=== PATIENT | male | born 1995 | race Caucasian/White ===

== ENCOUNTER 2020-02-05 07:29 | Outpatient (REF) | payer BC, SELFPAY | END 2020-02-05 07:30 | disposition home or self-care (01) | LOC: HO.LAB 07:29 | PROVIDERS: PCP Internal Medicine; Visit Provider Internal Medicine | DX: Z20.828 Contact with and (suspected) exposure to other viral communicable diseases (principal) | CPT/HCPCS: C9803; U0003 ==

== ENCOUNTER 2023-02-22 15:06 | Outpatient (AMB) | payer OTHER, SELFPAY ==
--- NOTE | 2023-02-22 15:14 | MHC.PC.OV ---
Vital Signs 02/22/23 15:18 Height 5 ft 4.5 in Weight 304 lb 8 oz BMI 51.5 BP 120/72 Blood Pressure Location Lt brachial Position Sitting Pulse 82 Pulse Source Pulse Oximeter Pulse Oximetry (%) 96 Oxygen Delivery Method Room Air Intake Visit Reasons: reestablish care Intake Note: Patient is here today for reestablish care, history of high functioning autism. Complaint of ingrown toe nail of left foot, blood in stool. Groundskeeper Required: No Equipment Technician: Present Accompanied by: Mother Allergies Seasonal Allergies Allergy (Intermediate, Verified 02/22/23 15:23) Itchy Eyes Tobacco use date assessed: 02/22/23 Dental Screening Dental Screen Date: 02/22/23 Did you have a dental visit in the last 12 months?: Yes Did you have a dental problem in the last 6 months where you did not have access to dental care?: No Was dental information given to patient?: Patient has dentist HPI reestablish care HPI Details 27-year-old male presents to the office to reestablish his care. Apparently, he was a regular patient here many years ago. No records available in [facility]. Mom is accompanying the patient on this visit. According to her he has a high functioning autism disorder. He does not communicate much. Current problems include an ingrown toenail and hemorrhoids. Patient currently is on no medications. [facility] Surgical History (Updated 02/22/23 @ 15:24 by SHER Barreto) No pertinent past surgical history Social History (Updated 02/22/23 @ 15:16 by SHER Barreto) Housing: House Alcohol intake: never Patient Tobacco Use Status: Never used Tobacco e-Cigarette/Vaping Use: Never Used Second Hand Smoke Exposure: No service: No Current occupational status: disabled Cognitive needs: No Hearing needs: No Vision needs: Yes (glasses) Questionnaire PHQ-9 Over the last 2 weeks, how often have you been bothered by any of the following problems? 1. Little interest or pleasure in doing things: not at all 2. Feeling down, depressed, or hopeless: not at all 3. Trouble falling or staying asleep, or sleeping too much: not at all 4. Feeling tired or having little energy: not at all 5. Poor appetite or overeating: not at all 6. Feeling bad about yourself - or that you are a failure or have let yourself or your family down: not at all 7. Trouble concentrating on things, such as reading the newspaper or watching television: not at all 8. Moving or speaking so slowly that other people could have noticed. Or the opposite - being so fidgety or restless that you have been moving around a lot more than usual: not at all 9. Thoughts that you would be better off or of hurting yourself in some way: not at all Total score: 0 Depression Screening Interpretation: Negative Depression Screening Done: Yes Source: Developed by Drs. Damian Campbell, Devi Bar, Salomón Larson and colleagues, with an educational loc from [employer]. Thrive Questionnaire Date Thrive assessed: 02/22/23 I am a: Patient What is your living situation today?: I have a steady place to live Within the past 12 months, did the food you bought not last and you didn't have the money to get more?: Never true Within the past 12 months, did you worry whether your food would run out before you got money to buy more?: Never true Do you have trouble paying for medicines?: No Do you have trouble getting transportation to medical appointments?: No Do you have trouble paying your heating and electricity bill?: No Do you have trouble taking care of your child, family member or friend?: No Do you have trouble with day-to-day activities such as bathing, preparing meals, shopping, managing finances, etc.?: No Are you currently unemployed and looking for a job?: No Are you interested in more education?: No Currently or been in a relationship where the following occur: no concerns reported AUDIT C Alcohol Use Questionnaire (AUDIT-C) 1. How often do you have a drink containing alcohol?: Never Total Score: 0 SOWMYA-7 AMB Questionnaire SOWMYA-7 Date SOWMYA - 7 assessed: 02/22/23 Feeling nervous, anxious, or on edge: 1 = Several days (currently in therapy) Not being able to stop or control worryin = Not at all Worrying too much about different things: 0 = Not at all Trouble relaxin = Not at all Being so restless that it is hard to sit still: 0 = Not at all Becoming easily annoyed or irritable: 0 = Not at all Feeling afraid as if something awful might happen: 0 = Not at all Total SOWMYA-7 score (0-4 normal; 5-9 mild; 10-14 moderate; 15-21 severe): 1 Source: Developed by Drs. Damian Campbell, Devi Bar, Salomón Larson and colleagues, with an educational loc from [employer]. Physical exam (Primary Care) Vital Signs: Last Vital Signs Pulse 82 02/22/23 15:18 BP 120/72 02/22/23 15:18 Pulse Ox 96 02/22/23 15:18 Oxygen Delivery Method Room Air 02/22/23 15:18 BMI result Body Mass Index 51.5 Tobacco/Smoking Status: Tobacco use Status Tobacco use date assessed 02/22/23 02/22/23 15:21 Patient Tobacco Use Status Never used Tobacco 02/22/23 15:21 e-Cigarette/Vaping Use Never Used 02/22/23 15:21 PHQ-9: PHQ-9 Score PHQ-9: Total score 0 02/22/23 15:36 Depression Screening Interpretation: Negative Thrive Assessment: Date of Thrive Assessment Date Thrive assessed 02/22/23 02/22/23 15:21 Currently or been in a relationship where the following occur: no concerns reported Const General: cooperative and healthy appearing Nutritional Appearance: well nourished Orientation/consciousness: patient oriented x3 Limitations: no limitations HENMA Head: Yes normal to inspection Eyes General: appearance normal, both eyes and all related structures Neck Neck: Yes normal visual inspection Chest Chest palpation & inspection: normal palpation of entire chest wall Resp Effort & Inspection: normal respiratory effort Skin Other: Face: Erythematous rash on both cheeks. Neuro General: patient oriented x3 Extrem Other: Left foot: Great toe: Swelling and erythema at the medial edge near the nail bed. Tender to touch. Office Procedures Flu Questionnaire Does the patient have a severe egg allergy?: No Does the patient have severe life threatening allergies?: No Does the patient have a fever or illness today?: No Has the patient ever had Guillain-[place] Syndrome?: No Has the patient ever had any past reaction to a flu shot?: No Immunizations flu vacc [id number] 6mos up(PF) 60 mcg(15 mcgx4)/0.5 mL IM syringe Performing Provider: Navdeep Law MD [facility] Administered by: SHER Mcfarland on 02/22/23 15:37 Dose Route Admin Location Dispensed Lot Number Expiration Date NDC Board Filler 0.5 mL IM Left Deltoid 0.5 mL [id number] 08/15/23 28601-156-20 [employer] VIS Given Date VIS Provided VIS Publication Date 02/22/23 Single Vaccine 20 Eligibility Eligibility Date Funding Source Not [facility] Eligible 02/22/23 Private Assessment and Plan Assessment & Plan (1) Paronychia of toe: Code(s): L03.039 - Cellulitis of unspecified toe Plan: Antibiotic called in. Podiatry referral for toenail excision. (2) Rash: Code(s): R21 - Rash and other nonspecific skin eruption Plan: Hydrocortisone cream prescribed.. Orders: Orders Complete Blood Count no Diff Today F84.0 - Autistic disorder Liver Panel Today F84.0 - Autistic disorder Lipid Panel Today F84.0 - Autistic disorder Thyroid Stimulating Hormone Today F84.0 - Autistic disorder UA and rflx microscopic Today F84.0 - Autistic disorder Influenza [id number] Immunization Today Z23 - Encounter for immunization Basic Metabolic Panel Today F84.0 - Autistic disorder Coding Level of Care Code Est Pt Level 3 (76313) Diagnoses Paronychia of toe L03.039 Rash R21
[2023-02-22 15:18] VITALS: BP 120/72; PULSE 82; O2SAT 96; BMI 51.5
== END 2023-02-22 15:59 | disposition home or self-care (01) ==
PROVIDERS: PCP Internal Medicine; Visit Provider Internal Medicine
DX: L03.032 Cellulitis of left toe (principal); R21 Rash and other nonspecific skin eruption; Z23 Encounter for immunization
CPT/HCPCS: 90471; 90686; 99213

== ENCOUNTER 2023-02-22 16:08 | Outpatient (REF) | payer OTHER, SELFPAY ==
[2023-02-22 17:03] LABS: Hematocrit 45.9 % (42.0-52.0); Hemoglobin 15.5 g/dl (14.0-18.0); Mean Corpuscular HGB Conc 33.8 g/dl (31.0-36.0); Mean Corpuscular Hemoglobin 28.6 pg (27.0-33.0); Mean Corpuscular Volume 84.7 fL (80.0-98.0); Mean Platelet Volume 10.1 fL (9.4-12.4); Platelet Count 342 X10*3/uL (160-400); Red Blood Count 5.42 X10*6/uL (4.60-5.80); White Blood Count 9.5 X10*3/uL (4.8-10.8)
[2023-02-22 17:18] LABS: Appearance Urine Clear; Color Urine Dark Yellow; Glucose Urine UA Negative (Negative); Leukocyte Esterase Urine Negative (Negative); Nitrite Urine Negative (Negative); PH 5.5 (5.0-9.0); Specific Gravity - Urine >= 1.030 (1.005-1.025); UMIC TRIGGER UA YES; Urine Blood Negative (Negative); Urine Ketones Negative (Negative); Urine Protein 30 (1+) mg/dL (Neg-Trace)
[2023-02-22 17:49] LABS: Alanine Aminotransferase 31 U/L (0-40); Alkaline Phosphatase 72 U/L (39-117); Anion Gap 12 (12-20); Aspartate Amino Transferase 19 U/L (5-37); Bilirubin Direct 0.1 mg/dL (0.0-0.5); Bilirubin Total 0.3 mg/dL (0.0-1.0); Blood Urea Nitrogen 14 mg/dL (9-16); Calcium 9.4 mg/dL (8.4-10.2); Carbon Dioxide 28 mmol/L (22-29); Chloride 106 mmol/L (96-108); Cholesterol 128 mg/dL (<200); Estimated Glomerular Filt Rate > 60; Glucose Random 84 mg/dL (60-115); HDL Cholesterol 34 mg/dL (>40); LDL Cholesterol Calculated 75 mg/dL (<100); Sodium 142 mmol/L (135-145); Total Protein 8.2 g/dL (6.5-8.0); Triglycerides 98 mg/dL (<150)
[2023-02-22 17:57] LABS: Bacteria Urine None Seen (None Seen); Hyaline Casts Urine 0-2 /LPF (0-2); RBC Urine 0-2 /HPF (0-2)
[2023-02-22 18:05] LABS: Thyroid Stimulating Hormone 0.85 uIU/mL (0.32-4.0)
== END 2023-02-22 16:09 | disposition home or self-care (01) ==
LOC: HO.LAB 16:08
PROVIDERS: PCP Internal Medicine; Visit Provider Internal Medicine
DX: F84.0 Autistic disorder (principal)
CPT/HCPCS: 36415; 80048; 80061; 80076; 81001; 84443; 85027

== ENCOUNTER 2024-01-26 15:55 | Outpatient (AMB) | payer OTHER, SELFPAY ==
--- NOTE | 2024-01-26 16:05 | MHC.PC.OV ---
Vital Signs 01/26/24 16:07 Height 5 ft 4.5 in Weight 317 lb 4 oz BMI 53.6 BP 120/70 Blood Pressure Location Lt brachial Position Sitting Pulse 89 Pulse Source Pulse Oximeter Pulse Oximetry (%) 98 Oxygen Delivery Method Room Air Intake Visit Reasons: overdue follow up Intake Note: Patient is here to follow up on health. Complaint of possible both ear clog and ingrown toe nails on both foot. Health Program Analyst Required: No Concrete Stone Finisher: Present Accompanied by: Mother Allergies Seasonal Allergies Allergy (Intermediate, Verified 01/26/24 16:48) Itchy Eyes Medication List - Last Reconciled 01/26/24 by Joanna Mujica PA-C No Known Home Meds Tobacco use date assessed: 01/26/24 Dental Screening Dental Screen Date: 02/22/23 [facility] Medical History (Updated 01/26/24 @ 16:50 by Joanna Mujica PA-C) Ingrown toenail of both feet Autism Annual physical exam Surgical History No pertinent past surgical history Social History Housing: House Alcohol intake: never Patient Tobacco Use Status: Never used Tobacco e-Cigarette/Vaping Use: Never Used Second Hand Smoke Exposure: No service: No Current occupational status: disabled Cognitive needs: No Hearing needs: No Vision needs: Yes (glasses) Questionnaire Thrive Questionnaire Date Thrive assessed: 02/22/23 SOWMYA-7 AMB Questionnaire SOWMYA-7 Date SOWMYA - 7 assessed: 02/22/23 Source: Developed by Drs. Damian Campbell, Devi Bar, Salomón Larson and colleagues, with an educational loc from [employer]. Physical exam (Primary Care) Vital Signs: Last Vital Signs Pulse 89 01/26/24 16:07 BP 120/70 01/26/24 16:07 Pulse Ox 98 01/26/24 16:07 Oxygen Delivery Method Room Air 01/26/24 16:07 BMI result Body Mass Index 53.6 Tobacco/Smoking Status: Tobacco use Status Tobacco use date assessed 01/26/24 01/26/24 16:10 Patient Tobacco Use Status Never used Tobacco 01/26/24 16:05 e-Cigarette/Vaping Use Never Used 01/26/24 16:05 Thrive Assessment: Date of Thrive Assessment Date Thrive assessed 02/22/23 01/26/24 16:05 Coding Level of Care Code Est Pt Prev Care 18-39y(37799) Diagnoses Annual physical exam Z00.00 Autism F84.0 Impacted cerumen H61.20 Morbid obesity with BMI of 50.0-59.9, adult E66.01; Z68.43 Ingrown toenail of both feet L60.0 Assessment & Plan Assessment & Plan (1) Annual physical exam: Code(s): Z00.00 - Encounter for general adult medical examination without abnormal findings Category: Medical Plan: see below (2) Autism: Code(s): F84.0 - Autistic disorder Category: Medical Plan: see below (3) Impacted cerumen: Code(s): H61.20 - Impacted cerumen, unspecified ear Plan: see below (4) Morbid obesity with BMI of 50.0-59.9, adult: Code(s): E66.01 - Morbid (severe) obesity due to excess calories; Z68.43 - Body mass index [BMI] 50.0-59.9, adult Category: Medical Plan: see below (5) Ingrown toenail of both feet: Code(s): L60.0 - Ingrowing nail Category: Medical Plan: see below Plan Annual Physical Exam: Normal exam. Will order labs to include CBC, CMP, lipid panel, A1c, ESR, CRP, thyroid function to be completed before patient's next appointment in 3-6 months Cerumen Impaction: Ear cleaning procedure to be performed to remove cerumen impaction. Ingrown Toenails: Referral to a air cargo ground crew supervisor for further evaluation and possible removal of ingrown toenails. Consider local anesthesia if necessary for toenail extraction. Orders: Orders C Reactive Protein Today F84.0 - Autistic disorder, H61.20 - Impacted cerumen, unspecified ear, Z00.00 - Encounter for general adult medical examination without abnormal findings Comprehensive Waucoma. Panel Fast Today Z00.00 - Encounter for general adult medical examination without abnormal findings Erythrocyte Sedimentation Rate Today F84.0 - Autistic disorder, Z00.00 - Encounter for general adult medical examination without abnormal findings Hemoglobin A1c Today E11.9 - Type 2 diabetes mellitus without complications Liver Panel Today F84.0 - Autistic disorder, Z00.00 - Encounter for general adult medical examination without abnormal findings Vitamin D 25-OH Total Today R79.89 - Other specified abnormal findings of blood chemistry Vitamin B12 and Folate Today R79.89 - Other specified abnormal findings of blood chemistry Complete Blood Count Auto Diff Today Z00.00 - Encounter for general adult medical examination without abnormal findings Lipid Panel Today Z00.00 - Encounter for general adult medical examination without abnormal findings TSH reflex Free T4 Today Z00.00 - Encounter for general adult medical examination without abnormal findings Referrals Podiatry Referral L60.0 - Ingrowing nail Scribe Plan - Not visible on output: History of Present Illness The patient is a 28-year-old male with a PMHx of Autism presenting for his annual physical exam. In addition patient is presenting with concerns of bilateral blocked ears and ingrown toenails to bilateral great toes. His ears have felt blocked for the past few weeks, and his mother reports having tried using hydrogen peroxide to alleviate possible cerumen impaction, without success. He experiences blockage in both ears. Additionally, the patient has been experiencing issues with ingrown toenails on both great toes. He reports pain and discomfort, particularly localized to specific areas of each toe. No professional treatment has been sought for his toenail issue to date, and he is not under the care of a air cargo ground crew supervisor. The patient denies any systemic symptoms such as fever or signs of infection related to the toenails. The patient has not had blood work done recently, with the last tests performed approximately one ago in February and were within normal limits. He is not on any medications and has had no recent eye exams but has a dentist check-up once a year. Social History - Education: Currently attending [employer] for Human Resources Operations Manager's permit - Employment: Not currently employed; recently left previous work. - Therapy: Attends weekly therapy sessions at [facility]. - Family: Lives with family, including a supportive mother. Review of Systems Ears: - Reports feeling of blockage in both ears. Skin/Nails: - Reports pain and discomfort from ingrown toenails on both great toes. Physical Exam Appearance: Alert. Oriented X3. No acute distress. Head: Normal external exam. Normocephalic. Atraumatic. No Conroy signs noted. No raccoon eyes noted. Eyes: Pupils are equal, round, and reactive to light. Extraocular movements intact. Conjunctiva and sclera normal. Eyelids normal. Ears: External auditory canal blocked with ear wax, especially in the right ear. Tympanic membranes normal. Throat: Pharynx normal. Uvula midline. Moist mucous membranes. No trismus noted. No drooling noted. No muffled voice noted. Neck: Normal inspection. Neck supple. Full range of motion. No adenopathy. Thyroid Normal. No meningeal signs. No neck mass noted. Cardiovascular: Normal heart rate and rhythm. Heart sound normal. No murmurs noted. Pulses normal throughout. Respiratory: No respiratory distress. Painless inspiration. Breath sounds normal. No wheezes/rales/rhonchi noted. Chest nontender. No accessory muscle usage noted or decreased air movement noted. Abdomen: Soft and nontender. Bowel sounds normal in all 4 quadrants. No distention noted. No organomegaly noted. No visible injury noted. Back: No costovertebral angle tenderness. Full range of motion noted. Skin: Skin warm and dry. Normal skin color. Normal skin turgor. No rashes/lesions/lacerations noted. Extremities: No lower extremity edema. Extremities exhibit normal range of motion. Tenderness noted in both big toes due to ingrown toenails. Neuro: Oriented X 3. No motor deficit. No sensory deficit. Reflexes normal. Results Plan Annual Physical Exam: Normal exam. Will order labs to include CBC, CMP, lipid panel, A1c, ESR, CRP, thyroid function to be completed before patient's next appointment in 3-6 months Cerumen Impaction: Ear cleaning procedure to be performed to remove cerumen impaction. Ingrown Toenails: Referral to a air cargo ground crew supervisor for further evaluation and possible removal of ingrown toenails. Consider local anesthesia if necessary for toenail extraction. Discussion Notes I discussed with the patient and his mother the plan to address his cerumen impaction and the potential need for intervention concerning his ingrown toenails. The procedure for ear cleaning was explained, as well as the typical course of management for ingrown toenails, including the role of the air cargo ground crew supervisor and possible minor procedures needed. The patient expressed understanding and consented to proceed with the ear cleaning. We talked about scheduling blood work, and the patient accepted the follow-up inquiries. Patient Instructions - Proceed with ear cleaning today; observe for any ear discomfort or blockage thereafter. - Schedule an appointment with a air cargo ground crew supervisor for toenail evaluation and management. - Complete blood work by February as discussed. Patient was informed and verbally consented to the use of an ambient scribe for clinic note documentation during this visit.
[2024-01-26 16:07] VITALS: BP 120/70; PULSE 89; O2SAT 98; BMI 53.6
== END 2024-01-26 16:42 | disposition home or self-care (01) ==
PROVIDERS: PCP Internal Medicine; Visit Provider Internal Medicine
DX: Z00.00 Encounter for general adult medical examination without abnormal findings (principal); F84.0 Autistic disorder; E66.01 Morbid (severe) obesity due to excess calories; Z68.43 Body mass index [BMI] 50.0-59.9, adult; H61.23 Impacted cerumen, bilateral; L60.0 Ingrowing nail

== ENCOUNTER → 2024-01-26 15:55 | Outpatient (BNVA) | payer OTHER, SELFPAY | PROVIDERS: PCP Internal Medicine; Visit Provider Internal Medicine | DX: Z00.00 Encounter for general adult medical examination without abnormal findings (principal); F84.0 Autistic disorder; H61.20 Impacted cerumen, unspecified ear; E66.01 Morbid (severe) obesity due to excess calories; Z68.43 Body mass index [BMI] 50.0-59.9, adult; L60.0 Ingrowing nail | CPT/HCPCS: 99395 ==

== ENCOUNTER 2025-01-17 05:31 | Emergency (ER) | payer OTHER, SELFPAY ==
[2025-01-17 05:48] VITALS: BP 129/72; PULSE 101; RESP 18; TEMP 37.1; O2SAT 98; BMI 51.6
[2025-01-17 06:13] LABS: Hematocrit 46.8 % (42.0-52.0); Hemoglobin 16.0 g/dl (14.0-18.0); Imm Gran Abs Auto 0.02 X10*3/uL (0.00-0.03); Imm Gran Pct Auto 0.2 % (0.0-0.4); Lymphocytes Absolute Auto 2.4 X10*3/uL (1.2-4.9); MANUAL DIFF FLAG NO; Mean Corpuscular HGB Conc 34.2 g/dl (31.0-36.0); Mean Corpuscular Hemoglobin 28.1 pg (27.0-33.0); Mean Corpuscular Volume 82.2 fL (80.0-98.0); NRBC Abs Auto 0.000 X10*3/uL (0.0-0.012); NRBC Pct Auto 0.0 /100WBC (0.0-0.2); Platelet Count 318 X10*3/uL (160-400); Red Blood Count 5.69 X10*6/uL (4.60-5.80); White Blood Count 10.6 X10*3/uL (4.8-10.8)
[2025-01-17 06:33] LABS: Alanine Aminotransferase 47 U/L (0-40); Albumin Level 4.4 g/dL (3.5-5.0); Alkaline Phosphatase 72 U/L (39-117); Anion Gap 14 (12-20); Aspartate Amino Transferase 40 U/L (5-37); Blood Urea Nitrogen 13 mg/dL (9-16); Calcium 9.3 mg/dL (8.4-10.2); Carbon Dioxide 24 mmol/L (22-29); Chloride 107 mmol/L (96-108); Creatinine Clr Calc Pharmacy 144.2; Estimated Glomerular Filt Rate > 60; Lipase 23 U/L (8-78); Magnesium 2.1 mg/dL (1.6-2.6); Potassium 4.5 mmol/L (3.3-5.1); Sodium 140 mmol/L (135-145); Total Protein 8.4 g/dL (6.5-8.0)
--- NOTE | 2025-01-17 09:53 | ED_ITS ---
HPI - Abdominal Pain General Chief Complaint: Abdominal Pain Stated Complaint: abd pain Time Seen by Provider: 01/17/25 09:34 Source: patient and family (mother) Mode of arrival: ambulatory Limitations: other (has Autism answers questions but mom provided the bulk of the history) History of Present Illness ED Provider: HPI narrative: 29-year-old male with a history of autism , mom reports he spends most of his day at home he has a Neonatal Critical Care Nurse, poor diet, limited ambulation, has been having epigastric abdominal pain without vomiting fevers or chills for the past 1 month they are trying to see their PCP but weights are at least a month and a half ahead, patient also has constipation. Related Data Previous Rx's ?Medication ?Instructions ?Recorded ondansetron 4 mg disintegrating 4 mg PO Q8H PRN nausea and 01/17/25 tablet vomiting #4 tabs pantoprazole 40 mg granules 40 mg PO DAILY #30 ea 05/09 delayed-release for susp in packet sucralfate 100 mg/mL oral 1 g (10 mL) PO QID 7 days #2 80 mL 01/17/25 suspension Allergies Allergy/AdvReac Type Severity Reaction Status Date / Time Seasonal Allergies Allergy Intermediate Itchy Eyes Verified 01/17/25 05:51 Review of Systems Constitutional: Reports as per [facility] Past Medical History Medical History (Updated 01/17/25 @ 10:04 by Chaitanya Mak DO) Ingrown toenail of both feet Autism Annual physical exam Surgical History No pertinent past surgical history Social History Social History Housing: House Alcohol intake: never Patient Tobacco Use Status: Never used Tobacco e-Cigarette/Vaping Use: Never Used Second Hand Smoke Exposure: No Advance Directives: No Advance Directives Information Provided: Yes Do you have a plan to hurt others: No Plan service: No Current occupational status: disabled Cognitive needs: No Hearing needs: No Vision needs: Yes (glasses) Physical Exam ED Exam Exam: ?General: ?Young male, looks appropriate for his age ?CV: RRR, no obvious murmurs appreciated ?Resp: ?No wheezing rales rhonchi no stridor moving air well Abd: ?Bowel sounds are present, mild epigastric tenderness no rebound no rigidity MSK: FROM, strength 5/5 all extremities Skin: Warm, dry, intact, ?Neuro: ?Alert and oriented x3, moving upper and lower extremities symmetrically, no obvious facial asymmetry noted, cranial nerves 2-12 intact Vital Signs: Vital Signs - 24 hr 01/17/25 05:48 Temperature 98.7 F Pulse Rate 101 H Respiratory Rate 18 Blood Pressure 129/72 Pulse Oximetry 98 Oxygen Delivery Method Room Air BMI result Body Mass Index 51.6 Medical Decision Making Medical Decision Making [facility] Narrative: 10:01 AM 01/17/2025 (Dr. Chaitanya Mak): Young man, increased BMI, autism, discussed dietary changes with mom and son, see my discharge instructions, workup reassuring, abdominal exam except for epigastric tenderness is benign did not feel further imaging such as CT or ultrasound is indicated Differential Diagnosis Differential Diagnoses: The differential diagnosis associated with the presentation includes (Cholecystitis, pancreatitis, hepatitis, gastritis, cholangitis, choledocholithiasis, SBO, ACS) Admission/Observation Consideration of admission/observation: Escalation of care including admission/observation considered Lab Data [facility] Lab Attestation statement: I reviewed the patient's lab results. 01/17/25 06:07 01/17/25 06:07 Labs: Lab Results 01/17/25 Range/Units 06:07 WBC 10.6 (4.8-10.8) X10*3/uL RBC 5.69 (4.60-5.80) X10*6/uL Hgb 16.0 (14.0-18.0) g/dl Hct 46.8 (42.0-52.0) % MCV 82.2 (80.0-98.0) fL MCH 28.1 (27.0-33.0) pg MCHC 34.2 (31.0-36.0) g/dl RDW 13.0 (11.0-16.0) % Plt Count 318 (160-400) X10*3/uL MPV 9.3 L (9.4-12.4) fL Immature Gran % (Auto) 0.2 (0.0-0.4) % Neut % (Auto) 70.7 (45-73) % Lymph % (Auto) 22.7 (20-40) % Monroe % (Auto) 5.1 (2-11) % Eos % (Auto) 0.9 (0-4) % Baso % (Auto) 0.4 (0-2) % Lymph # (Auto) 2.4 (1.2-4.9) X10*3/uL Monroe # (Auto) 0.5 (0.1-1.2) X10*3/uL Eos # (Auto) 0.1 (0.0-0.4) X10*3/uL Baso # (Auto) 0.0 (0.0-0.2) X10*3/uL Abs Immat Gran (auto) 0.02 (0.00-0.03) X10*3/uL Absolute Neuts (auto) 7.5 (2.0-8.3) x10*3/uL Absolute Nucleated RBC 0.000 (0.0-0.012) X10*3/uL Nucleated RBC % (auto) 0.0 (0.0-0.2) /100WBC Sodium 140 (135-145) mmol/L Potassium 4.5 (3.3-5.1) mmol/L Chloride 107 (96-108) mmol/L Carbon Dioxide 24 (22-29) mmol/L Anion Gap 14 (12-20) BUN 13 (9-16) mg/dL Creatinine 0.98 (0.5-1.4) mg/dL Estim Creat Clear Calc 144.2 Estimated GFR > 60 Random Glucose 108 (60-115) mg/dL Calcium 9.3 (8.4-10.2) mg/dL Magnesium 2.1 (1.6-2.6) mg/dL Total Bilirubin 0.7 (0.0-1.0) mg/dL AST 40 H (5-37) U/L ALT 47 H (0-40) U/L Alkaline Phosphatase 72 (39-117) U/L Total Protein 8.4 H (6.5-8.0) g/dL Albumin 4.4 (3.5-5.0) g/dL Lipase 23 (8-78) U/L Independent Historian Clinical information obtained from an independent historian. History obtained from or confirmed by: Parent Tests considered The following testing was considered but not selected: CT abdomen and pelvis with IV contrast Ultrasound gallbladder Chronic Conditions Patient?s care impacted by: Other (Autism) Discharge Plan Discharge Clinical Impression: Epigastric abdominal pain Patient Disposition: Home, Self-Care Additional Instructions: Pantoprazole 40 mg before bedtime or in the morning, your PCP may continue to extend that Zofran disintegrating pill as needed for nausea and vomiting I am for the next 1 week I recommend 1 g of sucralfate 20 minutes before any meals We discussed dietary changes Workup has been reassuring Any other issues concerns come back to the ER Prescriptions: New pantoprazole [address] for susp in packet 40 mg PO DAILY Qty: 30 0RF sucralfate 100 mg/mL suspension 1 g PO QID 7 Days Qty: 280 0RF ondansetron 4 mg tablet,disintegrating 4 mg PO Q8H PRN (Reason: nausea and vomiting) Qty: 4 0RF Print Language: Austrian
[2025-01-17] MEDS: Magnesium Hydrox/Alum Hydrox 30 ML ORAL.SUSP 15 ML PO (10:07)
[2025-01-17] MEDS: Lidocaine HCl Viscous 2 % 15 ML SOLUTION PO (10:07)
[2025-01-17] MEDS: Sucralfate Oral Suspension 1 GM/10 ML ORAL.SUSP 0.5 GM PO (10:07)
[2025-01-17 10:09] VITALS: BP 124/69; PULSE 97; RESP 16; TEMP 36.9; O2SAT 98
[2025-01-17] MEDS: Omeprazole/Na Bicarb Oral Susp 20 MG/10 ML UD Cup PO (10:21)
--- NOTE | 2025-01-17 10:32 | PC.NURSE ---
Pt c/o epigastric burning. States worse after drinking gingerale. Pt given meds with improvement. OK for discharge.
[2025-01-17 10:33] VITALS: BP 116/83; PULSE 80; RESP 16; TEMP 36.6; O2SAT 99
== END 2025-01-17 10:33 | disposition home or self-care (01) ==
PROVIDERS: Emergency Provider Emergency Medicine; PCP Internal Medicine
DX: R10.13 Epigastric pain (principal); F84.0 Autistic disorder
CPT/HCPCS: 36415; 80053; 83690; 83735; 85025; 99283; 99284